=== PATIENT | female | born 1955 ===

== ENCOUNTER 2017-12-10 10:03 | Emergency (ER) | payer OTHER ==
[2017-12-10 10:40] VITALS: BP 141/64
--- NOTE | 2017-12-10 11:45 | UC ---
Throat Pain/Nasal Kurt HPI - HPI Summary HPI Summary: Sore throat and tongue pain with white coating for about 5 days. No fever or cough. She denies any medical problems. - History of Current Complaint Chief Complaint: UCRespiratory Stated Complaint: SORE THROAT Time Seen by Provider: 12/10/17 11:11 Hx Obtained From: Patient Onset/Duration: Gradual Onset, Lasting Days Severity: Moderate Pain Intensity: 4 Cough: None Associated Signs & Symptoms: Positive: Dysphagia - Allergies/Home Medications Allergies/Adverse Reactions: Allergies Allergy/AdvReac Type Severity Reaction Status Date / Time No Known Allergies Allergy Verified 12/10/17 10:34 Home Medications: Home Medications Multivitamin [Multivitamins] 1 cap PO DAILY 12/10/17 [History Confirmed 12/10/17 ] PMH/Surg Hx/FS Hx/Imm Hx Previously Healthy: Yes - Surgical History Surgical History: Yes Surgery Procedure, Year, and Place: bowel resection- 10/2016. x2 - Family History Known Family History: Positive: Other - No related family history. - Social History Alcohol Use: Occasionally Substance Use Type: None Smoking Status (MU): Heavy Every Day Tobacco Smoker Type: Cigarettes Amount Used/How Often: 1 PPD Review of Systems ENT: Sore Throat All Other Systems Reviewed And Are Negative: Yes Physical Exam Triage Information Reviewed: Yes Appearance: Well-Appearing, No Pain Distress, Well-Nourished Vital Signs: Initial Vital Signs Temp 98.8 F 12/10/17 10:35 Pulse 66 12/10/17 10:35 Resp 18 12/10/17 10:35 BP 141/64 12/10/17 10:35 Pulse Ox 97 12/10/17 10:35 Vital Signs Reviewed: Yes Eye Exam: Normal Eyes: Positive: Conjunctiva Clear ENT Exam: Other - There is tongue white coating and throat redness with some coated spots. ENT: Positive: Pharyngeal erythema, Uvula midline Neck: Positive: Supple, Nontender, No Lymphadenopathy Respiratory: Positive: Lungs clear, Normal breath sounds, No respiratory distress, No accessory muscle use. Negative: Respiratory distress, Decreased breath sounds, Accessory muscle use, Crackles, Rhonchi Cardiovascular: Positive: No Murmur, Pulses Normal, Brisk Capillary Refill Abdomen Description: Positive: No Organomegaly, Soft. Negative: Distended, Guarding Musculoskeletal: Positive: Strength Intact, ROM Intact, No Edema Neurological: Positive: Alert, Muscle Tone Normal. Negative: Fatigued Psychological: Positive: Age Appropriate Behavior Skin: Negative: rashes Throat Pain/Nasal Course/Dx - Differential Dx/Diagnosis Provider Diagnoses: thrush Discharge - Sign-Out/Discharge Documenting (check all that apply): Discharge - Discharge Plan Condition: Good Disposition: HOME Prescriptions: Nystatin SUSPENSION ORAL SYR* 100,000 units PO TID #300 udc Patient Education Materials: Oral Candidiasis (ED) Referrals: Non Staff,Doctor [Primary Care Provider] - - Billing Disposition and Condition Condition: GOOD Disposition: HOME
== END 2017-12-10 11:52 | disposition home or self-care (01) ==
LOC: UCCORT 10:03
DX: B37.0 Candidal stomatitis (principal); F17.210 Nicotine dependence, cigarettes, uncomplicated
CPT/HCPCS: 87651; 99202; G0463